=== PATIENT | male | born 1955 | race Caucasian/White ===

== ENCOUNTER → 2016-09-03 | Outpatient (REF) | payer MEDICARE, OTHER ==
[~2016-09-03] MED LIST: /BACL20TA OR; /MEMA10TA PO; /ONDA4TA PO; ABIL2TAB OR; ACET500C PO; AMBIEN PO; ARIC10TA OR; ARIC10TA PO; ATOR1TAB19 PO; BACITAB3 PO; BACL-67 PO; BACT400T OR; BACT800T PO; BENA25CA PO; BISA10SU2 PR; CELE10TA OR; CHOLPOW39 PO; CITA40TA4 PO; CLOT1CRE6 TOP; CLOTR1CR TOP; COLA100C2 PO; Copaxone SC; DEXT30SUSP PO; DOCU10CA PO; FERR325T3 PO; FLEEENE4 PR; HYDR12.55 PO; HYDR12CA PO; HYDR1CR EXT; IMOD2TAB16 PO; Lumigan OU; MACR50CA OR; META0.52 PO; METH1VL IM; METH2.5T OR; METHOTREXATE PO; MOM30SS PO; MULTTAB4 PO; NAME10TA PO; NEUR100C OR; NUTRPOW11 PO; NYAM10003 EXT; NYST10PW TOP; NYSTOP; OMNICEF PO; ONDA4INJ4 IV; OXYCODONE PO; PROC2.5C PR; RHEU2.5T PO; RITA10TA OR; RITA5TAB OR; SENN8.6T7 PO; TIZA4TAB OR; TRAV04OPD OU; TRAVATAN Z 0.004% OU; TYLE325T5 PO; TYLE500T78 PO; TYLENOL PO; VENL150C43 PO; VIT D 2000 PO; VITA-130 PO; VITA10002 PO; VITA100037 PO; VITA100066 PO; VITA100T9 PO; VITA500T88 PO; [UNRECOGNIZED DRUG - OTHER]; [UNRECOGNIZED DRUG - OTHER] IV; [UNRECOGNIZED DRUG - OTHER] PO; [UNRECOGNIZED DRUG - OTHER] PO; motrin PO
== END ==
LOC: M SMT 17:08
PROVIDERS: ATTEND Nurse Practitioner Women's Health
DX: N31.9 Neuromuscular dysfunction of bladder, unspecified (principal); Z79.899 Other long term (current) drug therapy

== ENCOUNTER → 2017-02-04 | Outpatient (REF) | payer MEDICARE, OTHER, MEDICAID ==
[~2017-02-04] MED LIST changes: -ARIC10TA PO; +ARIC1TAB2 PO; +BACITAB PO; -BACITAB3 PO; -BACL-67 PO; +BACL1TAB9 PO; -VITA-130 PO; -VITA100037 PO; +VITA100067 PO; +VITA500T PO
== END ==
LOC: M SMT 16:51
PROVIDERS: ATTEND Urology
DX: N31.9 Neuromuscular dysfunction of bladder, unspecified (principal); G35 Multiple sclerosis; Z79.899 Other long term (current) drug therapy

== ENCOUNTER → 2017-03-18 | Outpatient (REF) | payer MEDICARE, OTHER, MEDICAID ==
[2017-03-18 17:52] LABS: MICROSCOPIC INDICATED? MAN YES (NO)
[2017-03-18 21:08] LABS: BACTERIA, URINE LARGE AMOUNT; HYALINE CAST, URINE NONE SEEN /lpf (0-1); MICROSCOPIC EXAM PERFORMED; RBC, URINE 15-20 /hpf (0-3); SQUAMOUS EPITHELIAL CELL URINE NONE SEEN /hpf (SMALL AMT); WBC, URINE TNTC /hpf (0-3)
== END ==
LOC: M SMT 16:53
PROVIDERS: ATTEND Urology
DX: N31.9 Neuromuscular dysfunction of bladder, unspecified (principal); R82.90 Unspecified abnormal findings in urine